=== PATIENT | male | born 1970 | race Caucasian/White ===

== ENCOUNTER 2018-11-07 12:16 | Emergency (ER) | payer OTHER ==
[~2018-11-07] VITALS: Ht 167.6 cm; Wt 122.0 kg
[2018-11-07] MEDS ORDERED: SOD CHLORIDE 0.9% 500 ML IV STA (12:23)
[2018-11-07 12:31] VITALS: Ht 167.6 cm; Wt 122.0 kg
--- NOTE | 2018-11-07 12:33 | ERD ---
ER Documentation Chief Complaint Chief Complaint Altered mental status HPI This is a 47-year-old history of end-stage cirrhosis who has an advanced directive of full code. The patient was being transferred [facility] for admission because of hyponatremia and hyperammonemia. However the paramedics were concerned that the patient's blood pressure dropped into the low 90s in route and diverted to our facility. Upon arrival the patient's blood pressure is 110. The patient himself states that he feels generally weak but has no pain. He has no headache chest pain shortness of breath or abdominal pain. No report of fevers or chills. ROS All systems reviewed and are negative except as per history of present illness. Medications Home Meds Reported Medications Hyoscyamine Sulfate* (Hyoscyamine Sulfate*) 0.125 Mg Tab.subl, 0.125 MG SL Q4H PRN for PRN, TAB 11/07/18 Hydrocodone/Acetaminophen (Newcomb 5-325 Tablet) 1 Each Tablet, 1 EACH PO DAILY PRN for SEVERE PAIN LEVEL 7-10, TAB 11/07/18 Albuterol Sulfate* (Albuterol Sulfate* Neb) 0.083%-3 Ml Neb, 2.5 MG NEB DAILY PRN for WHEEZING AND SOB, #30 VIAL 11/07/18 Spironolactone* (Aldactone*) 100 Mg Tablet, 100 MG PO BID, #60 TAB 11/07/18 Rifaximin* (Xifaxan*) 550 Mg Tablet, 550 MG PO BID, TAB 11/07/18 Propranolol Hcl* (Propranolol Hcl*) 10 Mg Tablet, 5 MG PO BID, TAB 11/07/18 Metolazone* (Metolazone*) 5 Mg Tablet, 5 MG PO DAILY, TAB 11/07/18 Metoclopramide* (Reglan*) 10 Mg Tablet, 10 MG PO AC MEALS, TAB 11/07/18 Fluoxetine Hcl* (Fluoxetine Hcl*) 20 Mg Capsule, 20 MG PO DAILY, CAP 11/07/18 Baclofen* (Lioresal*) 10 Mg Tab, 5 MG PO TID, TAB 11/07/18 Aripiprazole* (Abilify*) 10 Mg Tablet, 10 MG PO DAILY, #30 TAB 11/07/18 Discontinued Reported Medications Hydrocodone/Acetaminophen (Newcomb 5-325 Tablet) 1 Each Tablet, 1 EACH PO DAILY PRN for SEVERE PAIN LEVEL 7-10, TAB 11/07/18 Potassium Chloride* (Potassium Chloride*) 20 Meq Tablet.er, 20 MEQ PO DAILY, TAB.SA 11/07/18 Zolpidem Tartrate* (Zolpidem Tartrate*) 5 Mg Tablet, 5 MG PO QHS PRN for INSOMNIA, #30 TAB 11/07/18 Acetaminophen* (Feverall* Supp) 80 Mg Supp.rect, 80 MG [place] Q6H PRN for PAIN, SUPP.RECT 11/07/18 Furosemide* (Furosemide*) 40 Mg Tablet, 40 MG PO DAILY, TAB 11/07/18 Lorazepam* (Lorazepam*) 0.5 Mg Tablet, 0.5 MG PO DAILY PRN for ANXIETY, TAB 11/07/18 Allergies Allergies: Coded Allergies: No Known Allergy (Unverified , 11/07/18) PMhx/Soc As noted above FmHx Family History: No diabetes Physical Exam Vitals Vital Signs Date Temp Pulse Resp B/P (MAP) Pulse Ox O2 O2 Flow FiO2 Time Delivery Rate 11/07/18 97.4 78 16 100/66 99 12:31 (77) Physical Exam General: Somewhat slow to respond to protecting airway Head: Normocephalic, atraumatic. Eyes: Strabismus of the right eye appears to be chronic ENT: Dry mucous membranes Neck: Supple, no lymphadenopathy Respiratory: Lungs clear bilaterally, no distress Cardiovascular: RRR, no murmurs, rubs, or gallops Abdominal: Soft, mild protuberance without significant fluid wave, no tenderness, no peritonitis : Deferred MSK: No edema, no unilateral swelling, generalized weakness Neurologic: Alert and oriented to person and place, moving all extremities, normal speech, no focal weakness however generalized weakness is noted, no cerebellar signs, no asterixis Skin: No rash Psych: Normal mood Result Diagram: 11/07/18 1240 11/07/18 1240 Results 24 hrs Laboratory Tests Test 11/07/18 12:40 11/07/18 13:04 11/07/18 14:36 White Blood Count 9.4 10^3/ul Red Blood Count 3.16 10^6/ul Hemoglobin 9.4 g/dl Hematocrit 27.4 % Mean Corpuscular Volume 86.7 fl Mean Corpuscular Hemoglobin 29.7 pg Mean Corpuscular 34.3 g/dl Hemoglobin Concent Red Cell Distribution Width 17.0 % Platelet Count 123 10^3/UL Mean Platelet Volume 10.1 fl Immature Granulocytes % 1.500 % Neutrophils % 75.6 % Lymphocytes % 9.9 % Monocytes % 7.7 % Eosinophils % 5.0 % Basophils % 0.3 % Nucleated Red Blood Cells % 0.0 /100WBC Immature Granulocytes # 0.140 10^3/ul Neutrophils # 7.1 10^3/ul Lymphocytes # 0.9 10^3/ul Monocytes # 0.7 10^3/ul Eosinophils # 0.5 10^3/ul Basophils # 0.0 10^3/ul Nucleated Red Blood Cells # 0.0 10^3/ul Prothrombin Time 16.6 Sec Prothrombin Time Ratio 1.3 INR International 1.33 Normalized Ratio Activated Partial Thromboplast 43.7 Sec Time Sodium Level 128 mmol/L Potassium Level 4.7 mmol/L Chloride Level 96 mmol/L Carbon Dioxide Level 18 mmol/L Anion Gap 14 Blood Urea Nitrogen 60 mg/dl Creatinine 2.89 mg/dl Est Glomerular Filtrat 24 mL/min Rate mL/min Glucose Level 149 mg/dl Calcium Level 8.8 mg/dl Total Bilirubin 4.1 mg/dl Direct Bilirubin 2.30 mg/dl Indirect Bilirubin 1.8 mg/dl Aspartate Amino 51 IU/L Transf (AST/SGOT) Alanine 29 IU/L Aminotransferase (ALT/SGPT) Alkaline Phosphatase 132 IU/L Ammonia 20 umol/l Troponin I < 0.012 ng/ml Total Protein 7.1 g/dl Albumin 2.4 g/dl Globulin 4.70 g/dl Albumin/Globulin Ratio 0.51 Bedside Glucose 159 mg/dL Urine Color CHASE Urine Clarity CLEAR Urine pH 5.0 Urine Specific [place] 1.016 Urine Ketones NEGATIVE mg/dL Urine Nitrite NEGATIVE mg/dL Urine Bilirubin NEGATIVE mg/dL Urine Urobilinogen 1+ mg/dL Urine Leukocyte Esterase NEGATIVE Dutch/ul Urine Hemoglobin NEGATIVE mg/dL Urine Glucose NEGATIVE mg/dL Urine Total Protein NEGATIVE mg/dl Current Medications Medications Dose Sig/Navid Start Time Status Last (Trade) Ordered Route PRN Stop Time Admin Dose Reason Admin Sodium 500 ml @ Q1H STAT 11/07/18 DC 11/07/18 Chloride 500 mls/hr IV 12:23 13:01 11/07/18 13:22 Procedures/MDM EKG, MONITORS, & DIAGNOSTIC IMAGING: EKG: I reviewed and interpreted a 12-lead EKG. Rhythm: Normal sinus rhythm ST Changes: No contiguous ST segment elevations T waves: No contiguous T wave inversions Impression: [No evidence of acute cardiac ischemia] Chest x-ray: I reviewed and interpreted a 1 view of the chest Mediastinum: No enlargement Cardiac silhouette: No cardiomegaly Airspace: Clear lung burch bilaterally without evidence of pneumothorax Bones: No evidence of fracture CT brain: IMPRESSION: Mild generalized cerebral volume loss without evidence of intracranial masses he morrhages or midline shift. LAB INTERPRETATION: * The patient's white count is 9.4 normal, mild anemia of 9.4 as well * The patient's chemistry shows a sodium of 128 this is increased from labs done yesterday. The patient's creatinine is 2.89 only slightly above labs done yesterday of 2.5. The patient's troponin is negative and ammonia is 20 improved from yesterday's labs as well MEDICAL DECISION MAKING: The patient presents because of diversion via EMS for transiently low blood pressure. Given the patient's history of cirrhosis the patient's transiently low blood pressure is likely consistent with his baseline. I would expect episodes of hypotension related to likely hypoalbuminemia. The patient does not exhibit any signs or symptoms at this time concerning for sepsis. Patient has a benign abdominal exam without signs of SBP. No obvious signs of GI bleed. The patient's hyponatremia and hyperammonemia suggest possible dehydration. Patient will likely require altered mental status workup including CT of the brain, laboratory testing, cardiac evaluation and ammonia level. The patient will likely require lactulose. At this point no indication of sepsis, no indication for lactic acid it is likely elevated given his underlying liver disease and would convolute the patient's picture. ER COURSE: * The patient continues to be well-appearing in the emergency room setting, he is more alert at this time. He was given gentle fluids with improved symptomatology. His blood pressure has always remained stable. * I spoke to the patient's primary care physician who discussed the laboratory testing. He would still like the patient admitted for possible dehydration. * The patient's insurance is with [employer]. I spoke to Dr. Lam. He feels that the patient has had a jail facility and the patient requires IV hydration. However the patient does not necessitate inpatient hospital stay. Given that the patient jail facility can manage the patient with IV fluids, repeat labs he feels the patient can be appropriately discharged back. He will manage the patient and repeat the labs in 1-2 days. I believe this is a reasonable plan given the patient's chronicity of symptoms, improve labs from yesterday. The patient has excellent resources and can be safely discharged. Dr. Lam is asked to have a peripheral IV remain in the patient. Nursing notified. CONSULTATION: [None] DISPOSITION PLAN: Transfer back to jail facility Departure Diagnosis: Primary Impression: History of cirrhosis Additional Impressions: Dehydration Hyponatremia Renal insufficiency Condition: Stable BRUCE BOLES MD Nov 07, 2018 12:33
[2018-11-07] MEDS ORDERED: FURO40TA4 PO (13:21)
[2018-11-07] MEDS ORDERED: LORA0.5T PO (13:21)
[2018-11-07] MEDS ORDERED: ACET80SU5 PR (13:22)
[2018-11-07] MEDS ORDERED: ZOLP5TAB7 PO (13:23)
[2018-11-07] MEDS ORDERED: POTA20TA96 PO (13:30)
[2018-11-07] MEDS ORDERED: HYDR-4011 PO ×2 (13:35→13:48)
[2018-11-07] MEDS ORDERED: BACL10TA PO (13:41)
[2018-11-07] MEDS ORDERED: ARIP10TA12 PO (13:41)
[2018-11-07] MEDS ORDERED: FLUO20CA22 PO (13:42)
[2018-11-07] MEDS ORDERED: METO5TAB65 PO (13:43)
[2018-11-07] MEDS ORDERED: METO10TA92 PO (13:43)
[2018-11-07] MEDS ORDERED: PROP10TA6 PO (13:44)
[2018-11-07] MEDS ORDERED: RIFA550T4 PO (13:45)
[2018-11-07] MEDS ORDERED: SPIR100T PO (13:45)
[2018-11-07] MEDS ORDERED: ALBU2.5V3 NEB (13:46)
[2018-11-07] MEDS ORDERED: HYOS0.1297 SL (13:49)
[2018-11-07 20:22] VITALS: BP 112/59; PULSE 91; RESP 18
== END 2018-11-07 20:49 | disposition home or self-care (01) ==
LOC: E/R 12:16
DX: E86.0 Dehydration (principal); E87.1 Hypo-osmolality and hyponatremia; N28.9 Disorder of kidney and ureter, unspecified; R40.2142 Coma scale, eyes open, spontaneous, at arrival to emergency department; R40.2242 Coma scale, best verbal response, confused conversation, at arrival to emergency department; R40.2362 Coma scale, best motor response, obeys commands, at arrival to emergency department; Z87.19 Personal history of other diseases of the digestive system
CPT/HCPCS: 70450; 71045; 80053; 81003; 82140; 82962; 84484; 85025; 85610; 85730; 87040; J7040; 36415; 93005

== ENCOUNTER 2018-11-08 21:04 | Inpatient (IN) | payer OTHER ==
[~2018-11-08] VITALS: Ht 172.7 cm; Wt 78.6 kg
[~2018-11-08 21:04] MED LIST: ALBU2.5V3 NEB; ARIP10TA12 PO; BACL10TA PO; FLUO20CA22 PO; HYDR-4011 PO; HYOS0.1297 SL; METO10TA92 PO; METO5TAB65 PO; PROP10TA6 PO; RIFA550T4 PO; SPIR100T PO
[2018-11-08] MEDS ORDERED: SODIUM CHLORIDE 0.9% 1L BAG IV* STA (21:05)
[2018-11-08 21:09] VITALS: Ht 172.7 cm; Wt 78.6 kg
[2018-11-08] MEDS ORDERED: PIPER-TAZO 3.375 GM IV (PMX) 100 ML IVPB STA (22:24)
[2018-11-08] MEDS: ALBUMIN HUMAN 5% 250 ML IV SCH ×2 (22:46→23:56)
--- NOTE | 2018-11-08 22:47 | ERD ---
ER Documentation Chief Complaint Chief Complaint KEITH RALillian from [facility],low BP HPI This is a 47-year-old male with a history of known cirrhosis who presents to the emergency room because of low blood pressure. The patient was seen by myself yesterday for similar symptoms. He was transferred back to his residential facility for IV hydration. The patient over the last several days has had elevated ammonia and low sodium, this was improved yesterday based on blood testing. The patient arrives with initial blood pressure in the 80s rapidly responding into the 90s. Patient is a somewhat limited historian given his co ntal status baseline. Concern also for possible hepatic encephalopathy. Remainder of HPI is very limited. Of note the patient recently was DNR/DNI and recently converted back to full code. ROS Limited historian Medications Home Meds Reported Medications Hyoscyamine Sulfate* (Hyoscyamine Sulfate*) 0.125 Mg Tab.subl, 0.125 MG SL Q4H PRN for PRN, TAB 11/07/18 Hydrocodone/Acetaminophen ([place] 5-325 Tablet) 1 Each Tablet, 1 EACH PO DAILY PRN for SEVERE PAIN LEVEL 7-10, TAB 11/07/18 Albuterol Sulfate* (Albuterol Sulfate* Neb) 0.083%-3 Ml Neb, 2.5 MG NEB DAILY PRN for WHEEZING AND SOB, #30 VIAL 11/07/18 Spironolactone* (Aldactone*) 100 Mg Tablet, 100 MG PO BID, #60 TAB 11/07/18 Rifaximin* (Xifaxan*) 550 Mg Tablet, 550 MG PO BID, TAB 11/07/18 Propranolol Hcl* (Propranolol Hcl*) 10 Mg Tablet, 5 MG PO BID, TAB 11/07/18 Metolazone* (Metolazone*) 5 Mg Tablet, 5 MG PO DAILY, TAB 11/07/18 Metoclopramide* (Reglan*) 10 Mg Tablet, 10 MG PO AC MEALS, TAB 11/07/18 Fluoxetine Hcl* (Fluoxetine Hcl*) 20 Mg Capsule, 20 MG PO DAILY, CAP 11/07/18 Baclofen* (Lioresal*) 10 Mg Tab, 5 MG PO TID, TAB 11/07/18 Aripiprazole* (Abilify*) 10 Mg Tablet, 10 MG PO DAILY, #30 TAB 11/07/18 Discontinued Reported Medications Hydrocodone/Acetaminophen ([place] 5-325 Tablet) 1 Each Tablet, 1 EACH PO DAILY PRN for SEVERE PAIN LEVEL 7-10, TAB 11/07/18 Potassium Chloride* (Potassium Chloride*) 20 Meq Tablet.er, 20 MEQ PO DAILY, TAB.SA 11/07/18 Zolpidem Tartrate* (Zolpidem Tartrate*) 5 Mg Tablet, 5 MG PO QHS PRN for INSOMNIA, #30 TAB 11/07/18 Acetaminophen* (Feverall* Supp) 80 Mg Supp.rect, 80 MG [place] Q6H PRN for PAIN, SUPP.RECT 11/07/18 Furosemide* (Furosemide*) 40 Mg Tablet, 40 MG PO DAILY, TAB 11/07/18 Lorazepam* (Lorazepam*) 0.5 Mg Tablet, 0.5 MG PO DAILY PRN for ANXIETY, TAB 11/07/18 Allergies Allergies: Coded Allergies: No Known Allergy (Unverified , 11/07/18) PMhx/Soc History of Surgery: Yes (PLEUREX CATHETER(ABDOMEN)) Anesthesia Reaction: No Hx Neurological Disorder: No Hx Respiratory Disorders: No Hx Cardiac Disorders: Yes (HTN) Hx Psychiatric Problems: Yes (BIPOLAR) Hx Miscellaneous Medical Probl: Yes (LIVER CIRROSIS, ASCIETIS, VARICES, ANMIA, ) Hx Alcohol Use: No Hx Substance Use: No Hx Tobacco Use: No Smoking Status: Unknown if ever smoked FmHx Family History: No diabetes Physical Exam Vitals Vital Signs Date Temp Pulse Resp B/P (MAP) Pulse Ox O2 O2 Flow FiO2 Time Delivery Rate 11/09/18 98.1 88 103/63 100 00:00 (76) 11/09/18 98.1 88 19 103/63 100 Room Air 00:00 (76) 11/08/18 97.9 81 13 92/57 (69) 100 22:00 11/08/18 98.3 88 18 88/51 (63) 100 21:09 Physical Exam General: Well developed, well nourished, no acute distress Head: Normocephalic, atraumatic. Eyes: Pupils equally reactive, EOM intact, scleral icterus, strabismus of the right eye ENT: Dry mucous membranes Neck: Supple, no lymphadenopathy Respiratory: Lungs clear bilaterally, no distress Cardiovascular: RRR, no murmurs, rubs, or gallops Abdominal: Soft, somewhat protuberant but no fluid wave, no tenderness, no peritonitis : Deferred MSK: No edema, no unilateral swelling, 5/5 strength Neurologic: Limited exam but moving all extremities, no asterixis Skin: No rash Psych: Normal mood Result Diagram: 11/08/18213011/08/182128 Results 24 hrs Laboratory Tests Test 11/08/18 21:29 11/08/18 21:31 11/08/18 21:47 11/08/18 22:19 Prothrombin Time 18.0 Sec Prothrombin Time 1.4 Ratio INR International 1.48 Normalized Ratio Activated 39.[address] Time Sodium Level 132 mmol/L Potassium Level 3.6 mmol/L Chloride Level 101 mmol/L Carbon Dioxide 17 mmol/L Level Anion Gap 14 Blood Urea 62 mg/dl Nitrogen Creatinine 2.85 mg/dl Est Glomerular 24 mL/min Filtrat Rate mL/min Glucose Level 172 mg/dl Calcium Level 8.4 mg/dl Total Bilirubin 2.7 mg/dl Direct Bilirubin 1.30 mg/dl Indirect Bilirubin 1.4 mg/dl Aspartate Amino 51 IU/L Transf (AST/SGOT) Alanine 33 IU/L Aminotransferase ( ALT/SGPT) Alkaline 152 IU/L Phosphatase Troponin I < 0.012 ng/ml Total Protein 6.4 g/dl Albumin 2.2 g/dl Globulin 4.20 g/dl Albumin/Globulin 0.52 Ratio Lipase 462 U/L White Blood Count 15.7 10^3/ul Red Blood Count 2.88 10^6/ul Hemoglobin 8.6 g/dl Hematocrit 24.7 % Mean Corpuscular 85.8 fl Volume Mean Corpuscular 29.9 pg Hemoglobin Mean Corpuscular 34.8 g/dl Hemoglobin Concent Red Cell 16.9 % Distribution Width Platelet Count 98 10^3/UL Mean Platelet 9.4 fl Volume Immature 0.900 % Granulocytes % Neutrophils % 87.8 % Lymphocytes % 4.8 % Monocytes % 5.5 % Eosinophils % 0.8 % Basophils % 0.2 % Nucleated Red 0.0 /100WBC Blood Cells % Immature 0.140 10^3/ul Granulocytes # Neutrophils # 13.8 10^3/ul Lymphocytes # 0.8 10^3/ul Monocytes # 0.9 10^3/ul Eosinophils # 0.1 10^3/ul Basophils # 0.0 10^3/ul Nucleated Red 0.0 10^3/ul Blood Cells # POC Venous Lactate 2.6 mmol/L Ammonia 19 umol/l Test 11/09/18 00:06 POC Venous Lactate 3.1 mmol/L Current Medications Medications Dose Sig/Navid Start Time Status Last (Trade) Ordered Route PRN Stop Time Admin Dose Reason Admin Sodium 2,000 ml BOLUS OVER 2 11/08/18 DC 11/08/18 Chloride HOURS STAT 21:05 21:52 (NS) IV* 11/08/18 21:16 Albumin 250 ml @ Q1H IV 11/08/18 DC 11/08/18 Human 250 mls/hr 22:30 23:56 11/09/18 00:29 Piperacillin 100 ml @ ONCE STAT 11/08/18 DC 11/08/18 Sod/ 200 mls/hr IVPB 22:24 22:55 Tazobactam 11/08/18 22:53 Sod Lactulose 20 gm ONCE ONCE 11/08/18 DC 11/08/18 (Enulose) NGT 23:00 23:05 11/08/18 23:03 Lorazepam 1 mg ONCE ONCE 11/09/18 DC 11/08/18 (Ativan) IV 00:00 23:44 11/09/18 00:01 Ondansetron 4 mg ER BRIDGE 11/09/18 HCl (Zofran PRN IV 00:30 Inj) NAUSEA/VOMITI 11/10/18 00:29 NG 650 mg ER BRIDGE 11/09/18 Acetaminophen PRN PO 00:30 (Tylenol .MILD PAIN 11/10/18 00:29 Tab) 1-3 OR TEMP Procedures/MDM EKG, MONITORS, & DIAGNOSTIC IMAGING: EKG: I reviewed and interpreted a 12-lead EKG. Rhythm: Normal sinus rhythm ST Changes: No contiguous ST segment elevations T waves: No contiguous T wave inversions Impression: [No evidence of acute cardiac ischemia] Chest x-ray: IMPRESSION: Small right pleural effusion and right lower lobe atelectasis. No significant interval change. LAB INTERPRETATION: * CBC with elevated white count of unclear significance * Chemistry profile shows creatinine has stabilized, sodium has increased to 130s from 128 Restrains: Indication: Medical restraints, fall risk Location: 4 point restraints to bilateral upper and lower extremities The patient had a bedside reevaluation within 50 minutes of placement of restraints. Patient remained stable. MEDICAL DECISION MAKING: The patient presents with low blood pressure. This is likely his baseline given his liver dysfunction, consider possible dehydration given the creatinine issues that he experienced yesterday. However the patient was receiving IV fluids at residential facility. The patient may benefit from albumin 5% volume expansion. The patient does have some altered mental status concerning for hepatic encephalopathy. Ammonia will be sent. NGT to be placed and lactulose will be provided. The patient is currently protecting his airway and does not require central line or pressors. Lactic acid is slightly elevated but again in the setting of liver dysfunction this is to be accepted. Patient has no tachycardia or fever. White blood cell count is slightly elevated. Unclear significance. Blood cultures and empiric Zosyn would be reasonable but low concern for infectious process. Benign abdominal exam without concern for SBP. ER COURSE: * Patient written for IV fluids prior to my arrival. The patient was given 5% albumin for volume expansion * Blood cultures prior to Zosyn * Patient did require restraints given fall risk, medical restraint order has been placed * The patient's blood pressure has been improving * Lactulose provided. CONSULTATION: [None] DISPOSITION PLAN: Telemetry admission Accepting care team and consultations: I discussed the current laboratory data, diagnostic imaging and emergency care provided. Admitting team: Dr. Lam Admitting team indication: Insurance directed Departure Diagnosis: Primary Impression: Hepatic encephalopathy Additional Impressions: Acute renal insufficiency Hypotension Hypotension type: unspecified hypotension type Qualified Codes: I95.9 - Hypotension, unspecified Lactic acidosis End stage liver disease Dehydration Condition: Stable BRUCE BOLES MD Nov 08, 2018 22:47
[2018-11-08] MEDS ORDERED: LACTULOSE 30ML CUP NGT ONE (23:00)
[2018-11-09] VITALS (14 sets, daily range): BP systolic 94–118; BP diastolic 56–91; PULSE 74–104; RESP 17–22
[2018-11-09] MEDS ORDERED: LORAZEPAM 2 MG INJ IV ONE
[2018-11-09] MEDS ORDERED: ACETAMINOPHEN 325 MG TAB PO PRN (00:30)
[2018-11-09] MEDS ORDERED: ONDANSETRON 4 MG INJ IV PRN (00:30)
--- NOTE | 2018-11-09 03:09 | NUR ---
Notified Dr. Lam pt has been admitted to telemetry floor. New orders given to place pt on soft limb restraints.
--- NOTE | 2018-11-09 06:00 | NUR ---
End of Shift Summary No change in pt condition. See pt assessment and EMAR.
--- NOTE | 2018-11-09 10:32 | HP ---
DATE OF ADMISSION: 11/09/2018 CHIEF COMPLAINT: Altered mental status. HISTORY OF PRESENT ILLNESS: A 47-year-old male with end-stage alcoholic liver disease and chronic as cites. He was brought into emergency room from congregate living. The patient was noted to have alt ered mental status and low blood pressure. There was no abdominal pain, nausea or vomiting. There w as no chest pain, shortness of breath or cough. No fever. According to his sister, his mental statu s is quite low compared to baseline. Initial evaluation revealed a serum ammonia of 19. Sodium was previously low but repeat serum sodium was 132. Patient has a peritoneal catheter and gets frequent drainage of his recurrent ascites. He was previously in care of hospice, but presently lives in a [facility] living. The patient has been sober for about 1 year. PAST MEDICAL HISTORY: 1. Endstage alcoholic liver disease. 2. Chronic ascites. 3. Stage IV chronic kidney disease. 4. Chronic depression. MEDICATIONS PRIOR TO ADMISSION: 1. Rifaximin. 2. Albuterol. 3. Baclofen. 4. . 5. Propranolol. 6. Spironolactone. 7. Abilify. 8. Fluoxetine, 9. [place]. 10. Metolazone. PHYSICAL EXAMINATION: GENERAL: Well-developed, well-nourished male who is mentally slow. He is however oriented to place and person. VITAL SIGNS: Stable. He is afebrile. HEENT: Extraocular muscles intact. Pupils are equal and reactive to light bilaterally. Sclerae are mildly icteric. Oropharynx is clear. NECK: Supple. LUNGS: Clear to auscultation bilaterally. CARDIAC: Regular rate and rhythm. No murmurs, rubs or gallops. ABDOMEN: Soft, nontender, nondistended, normoactive bowel sounds. EXTREMITIES: No clubbing, cyanosis, or edema. NEUROLOGICAL: Patient moves all extremities. LABORATORY DATA: White blood cell count 15.7, hemoglobin 8.6, platelet count is 98,000. Sodium 132, potassium 3.6, chloride 101, bicarbonate 17, BUN 62, creatinine 2.85. Total bilirubin is 2.7. ASSESSMENT: 1. A 47-year-old male with end-stage alcoholic liver disease. 2. Altered mental status. Rule out sepsis. SBP is less likely since patient has no abdominal pain. 3. Stage IV chronic kidney disease. 4. Chronic depression. PLAN: 1. Admit to tele, IV Zosyn. Check pending IV Zosyn. Resume lactulose and rifaximin. Repeat lab wo rk. 2. The overall prognosis is poor due to end-stage liver disease. This was discussed with family memb ers at the bedside. Dictated By: CHIQUITA QUEZADA/RAJINDER Conf#: [id number] DID#: [id number]
[2018-11-09] MEDS: PIPER-TAZO 2.25 GM (PMX) 50 ML IVPB SCH ×2 (11:08→21:09)
[2018-11-09] MEDS: RIFAXIMIN 550 MG TAB PO SCH ×2 (11:09→21:07)
[2018-11-09] MEDS: ARIPIPRAZOLE 10 MG TAB PO SCH (11:09)
[2018-11-09] MEDS: FLUOXETINE 20 MG CAP PO SCH (11:09)
[2018-11-09] MEDS: SOD CHLORIDE 0.9% 1,000 ML IV SCH (11:12)
[2018-11-09] MEDS: LACTULOSE 30ML CUP PO SCH ×2 (14:13→21:09)
--- NOTE | 2018-11-09 18:45 | NUR ---
EOSS:PT DX SEPSIS. ALTERED MENTAL STATUS WORSE THAN BASELINE. LIVER CIRRHOSIS ENCEPHALOPATHY. ON JACQUELINE WRISTS RESTRAINTS. ASCITIS DRAIN NOTED ON LEFT ABDOMINAL WALL.FLUID SENT FOR CELL CT AND CULTURE TO LAB. ON ANTIBIOTIC TX. ALL NEEDS MET.CONTINUE POC.
[2018-11-09] MEDS: PROPRANOLOL 10 MG TAB PO SCH (21:07)
[2018-11-10] VITALS (13 sets, daily range): BP systolic 95–115; BP diastolic 56–67; PULSE 66–84; RESP 18–20
[2018-11-10] MEDS: SOD CHLORIDE 0.9% 1,000 ML IV SCH (02:13)
[2018-11-10] MEDS: LACTULOSE 30ML CUP PO SCH ×2 (05:04→13:30)
[2018-11-10] MEDS: PIPER-TAZO 2.25 GM (PMX) 50 ML IVPB SCH ×2 (05:04→13:30)
--- NOTE | 2018-11-10 06:12 | NUR ---
EOSS: Pt A&O x 2. VSS, on RA. Sinus rhythm on the monitor. No s/s of distress, resting in bed comfortably. Patient repeatedly attempts to pull peritoneal catheter dressing and IV. Frequent reorientation performed. Family is aware of restraints. Neurovascular checks performed. Monitored patient's circulatory status. Checked vitals Q2hrs. Turned and repositioned patient Q2hrs; low air loss mattress ordered. Monitored hydration and elimination. Fall precautions maintained; bed alarm on. Hourly rounding performed. Call light within reach; instructed pt to call for assistance as needed. Pt clean and dry; all needs and concerns attended to. Will endorse pt to AM RN for continuity of care.
[2018-11-10] MEDS: PROPRANOLOL 10 MG TAB PO SCH ×2 (09:00→20:05)
[2018-11-10] MEDS: FLUOXETINE 20 MG CAP PO SCH (09:12)
[2018-11-10] MEDS: ARIPIPRAZOLE 10 MG TAB PO SCH (09:12)
[2018-11-10] MEDS: RIFAXIMIN 550 MG TAB PO SCH ×2 (09:13→20:05)
[2018-11-10] MEDS ORDERED: CEPH-443 PO (10:10)
[2018-11-10] MEDS ORDERED: LACT20SO2 PO (10:10)
--- NOTE | 2018-11-10 10:15 | PDOCDIS ---
Discharge Instructions CONDITION [id number] Patient Condition: Knokw1m Fair HOME CARE INSTRUCTIONS: [id number] Diet Instructions: [id number] FOLLOW UP/APPOINTMENTS Follow-up Plan pcp 1 week CHIQUITA REED MD Nov 10, 2018 10:15
--- NOTE | 2018-11-10 12:43 | DS ---
DATE OF ADMISSION: 11/09/2018 DATE OF DISCHARGE: 11/10/2018 DISCHARGE DIAGNOSES: 1. Metabolic encephalopathy, improved. 2. End-stage alcoholic liver disease. 3. Leukocytosis with no evidence of infection, resolved. 4. Anemia of chronic disease. 5. Dehydration. 6. Stage III chronic kidney disease. 7. Lumbocytopenia. 8. Recurrent ascites, status post peritoneal catheter placement. 9. Chronic depression. HOSPITAL COURSE: This is a 47-year-old male with end-stage alcoholic liver disease, [facility], presented with altered mental status. White blood cell count was 15,000. However, th ere was no evidence of infection. Serum ammonia was 19. Home medications were continued. He was on Zosyn. White blood cell count returned to a normal range. His mental status also improved. 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 At this point , he is in stable condition for transition to congregate living. I discontinued Metolazone since faisal nevarez was dehydrated and had developed acute kidney injury. Lactulose was increased to 3 times daily. Keflex was prescribed for 5 days. The patient will follow up with PCP in 1 week. Dictated By: CHIQUITA QUEZADA/RAJINDER Conf#: [id number] DID#: [id number]
--- NOTE | 2018-11-10 15:45 | NUR ---
pt is more alert and oriented. no episode ot trying to pull out tubings. will d/c restraint and evaluate.
--- NOTE | 2018-11-10 16:21 | NUR ---
pt for discharge back to [facility]. awaiting for case monitor from [facility] to arrange transfer.floor case monitor aware.
--- NOTE | 2018-11-10 18:01 | NUR ---
per cm ángel of regal, pt going to [facility].[id number]. report given to Kaleb. awaiting for oyster picker.
--- NOTE | 2018-11-10 18:59 | NUR ---
[facility] PT WILL BE PICKED UP AT 8PM. CALLED FAMILY SPOKE TO MELVA AND NOTIFIED OF PT DISCHARGE AND NAME AND ADDRESS OF FACILITY. CALLED ROSSANA BOJORQUEZ OF [facility] TO CALL FAMILY. REPORT ALREADY GIVEN TO MERY OF [facility].PT AWARE AND STABLE.
--- NOTE | 2018-11-10 21:15 | NUR ---
pt has been d/c in a stable condition via ambulance
== END 2018-11-10 21:06 | disposition home or self-care (01) | DRG 433 ==
LOC: E/R 21:04 → TEL 11-09 00:11 → CANRESERV 11-09 00:17 → EDBEDREQ 11-09 00:51
PROVIDERS: ADMIT Internal Medicine; ATTEND Internal Medicine
DX: K70.40 Alcoholic hepatic failure without coma (principal); R18.8 Other ascites; N17.9 Acute kidney failure, unspecified; F10.27 Alcohol dependence with alcohol-induced persisting dementia; N18.4 Chronic kidney disease, stage 4 (severe); D63.8 Anemia in other chronic diseases classified elsewhere; E86.0 Dehydration; F32.9 Major depressive disorder, single episode, unspecified; I12.9 Hypertensive chronic kidney disease with stage 1 through stage 4 chronic kidney disease, or unspecified chronic kidney disease
CPT/HCPCS: 36415; 71045; 80048; 80053; 81003; 82140; 83605; 83690; 84484; 85025; 85610; 85730; 87040; 87070; 89051; 93005; 96361; 96365; 96368; 96375; J0400; J2060; J2543; J7030; P9045